=== PATIENT | male | born 1945 | race Caucasian/White ===

== ENCOUNTER 2017-02-10 06:24 | Observation (INO) | payer MEDICARE ==
[~2017-02-10] VITALS: Ht 177.8 cm; Wt 60.8 kg
[~2017-02-10 06:24] MED LIST: CARV12.52 PO; CLON0.1T PO; DIAZ5TAB PO; FURO1TAB62 PO; GLIM1 PO; LISI-515 PO; METF500T PO; MOBI7.5T PO; MULT-65 PO; OMEGCAP PO; POTA-163 PO; SERT-132 PO; SIMV40TA PO; TAMS5CAP PO; TERA5CAP3 PO
[2017-02-10] MEDS ORDERED: CHLORHEXIDINE GLUCONATE 2 % 1 PACK (2 CLOTHS) TOPICAL PRN (06:45)
[2017-02-10] MEDS ORDERED: INSULIN HUMAN REGULAR 1,000 UNITS/10 ML VIAL SQ PRN (06:45)
[2017-02-10] MEDS ORDERED: METOPROLOL TARTRATE 25 MG TAB PO PRN (06:45)
[2017-02-10] MEDS ORDERED: SODIUM CHLORID 0.9% 500 ML IV PRN (06:45)
[2017-02-10] MEDS ORDERED: POVIDONE IODINE 5% (ANTISEPSIS KIT) 4 APPLICATIONS EACH NARE PRN (06:45)
[2017-02-10] MEDS ORDERED: LACTATED RINGER'S 1000 ML IV PRN (06:45)
[2017-02-10] MEDS ORDERED: VANCOMYCIN HCL 1000 MG ON-CALL/NS 250 ML IV SCH ×2 (07:00)
[2017-02-10] MEDS ORDERED: SODIUM CHLOR 0.9% 1000 ML INJ 1,000 ML IV SCH (07:00)
[2017-02-10] MEDS ORDERED: BUPIVACAINE HCL PF 0.5% 30 ML VIAL ONE (07:10)
[2017-02-10] MEDS ORDERED: methylPREDNISolone ACETATE 40 MG/ML VIAL ONE (07:11)
[2017-02-10] MEDS ORDERED: GELFOAM SIZE 100 ONE (07:11)
[2017-02-10] MEDS ORDERED: ceFAZolin 2 GM PREMIX 50 ML ONE (07:11)
[2017-02-10] MEDS ORDERED: THROMBIN (TOPICAL) 5,000 UNIT VIAL ONE (07:11)
[2017-02-10] MEDS ORDERED: GENTAMICIN SULFATE 80 MG/2 ML VIAL ONE (07:12)
[2017-02-10 07:19] VITALS: BP 136/82; PULSE 82; RESP 18; TEMP 97; O2SAT 98
[2017-02-10] MEDS ORDERED: ARTIFICIAL TEARS OPTH OINT 3.5 APPLIC/3.5 GM TUBO ONE (08:05)
[2017-02-10] MEDS ORDERED: MIDAZOLAM HCL 2 MG/2 ML VIAL ONE (08:05)
[2017-02-10] MEDS ORDERED: ACETAMINOPHEN 1000 MG/100 ML VIAL IV ONE (08:05)
[2017-02-10] MEDS ORDERED: FAMOTIDINE 20 MG/2 ML VIAL ONE (08:06)
[2017-02-10] MEDS ORDERED: fentaNYL CITRATE 250 MCG/5 ML AMP ONE (08:06)
[2017-02-10] MEDS: NS + KCL 20 MEQ INJ 1,000 ML IV SCH ×3 (11:11→23:58)
[2017-02-10] MEDS ORDERED: MORPHINE SULFATE 4 MG/ML INJ IV PUSH PRN ×2 (11:15)
[2017-02-10] MEDS: DOCUSATE SODIUM 100 MG CAP PO SCH ×2 (11:15→21:48)
[2017-02-10] MEDS ORDERED: SODIUM CHLORIDE 0.9% FLUSH 5 ML FLUSH IVF PRN (11:15)
[2017-02-10] MEDS ORDERED: ACETAMINOPHEN 325 MG TAB PO PRN (11:15)
--- NOTE | 2017-02-10 11:27 | PD.OP ---
Operative Report Date of Surgery: Feb 10, 2017 Preoperative Diagnosis: Lumbar spinal stenosis Postoperative Diagnosis: Lumbar spinal stenosis Procedure: L3-L4, L4-L5 left decompressive laminectomy, mesial facetectomy, foraminotomy with microsurgical resection of the disc Anesthesia: Surgeon: Michael Dyer Customer Account Technician(s): Brett willett Operation and Findings: INDICATIONS FOR THE SURGICAL PROCEDURE Mr Landers is a 72 year-old male who presented with intractable mechanical back pain and clinical evidence of left L4 and L5 lower extremity radiculopathy. He was found to have significant lumbar spinal stenosis with significant mass effect on the neural structures which correlated with the clinical symptoms. The patient has failed maximum nonsurgical management including multiple modalities of conservative treatment as well as pain management interventions by an interventional pain specialist. A surgical decompression was indicated as a last resort. The [id number] details of the procedure, indications, alternatives, risks and potential complications were fully discussed with the patient. The patient fully understood. All the questions were answered. No guarantees were given. The patient voiced requesting the procedure and provided informed consents. The patient was offered the alternative of delaying the procedure and continuing with nonsurgical management. DETAILS OF THE SURGICAL PROCEDURE After the induction of general anesthesia, endotracheal intubation was performed. A Castanon catheter, bilateral JULIETTE hose and sequential compression devices were placed and kept throughout the procedure. The patient was positioned prone on a Cody table over a Hunter frame. All pressure points were carefully padded with eggcrate mattress. The eyes were tapped shut after ointment was applied by the anesthesiologist to prevent corneal abrasion. A Shaun hugger was placed over the exposed lower body to maintain control of the core body temperature. The lower lumbar region was prepped and draped in the usual sterile fashion. A spinal needle was placed for localization and an x- ray performed with a C-arm. A skin incision was made in the midline over the spinous processes L3, 4 and L5 with a #10 blade. Small subcutaneous bleeders were controlled with a bipolar and the dissection was carried out through the lumbar fascia exposing the spinous processes. A subperiostial dissection was performed with a Villafuerte elevator and a Bovie over the left L3-4 and L4-5 spinous process lamina and facets. A microdiscectomy self-retaining retractor was placed on the incision and an x-ray was obtained with an instrument placed underneath the lamina of L4. At this point in the procedure the operating microscope was draped in the usual sterile fashion and brought to the field. The rest of the surgical procedure was performed using microsurgical dissection technique with exception of the closure. Once the level was confirmed, a decompressive laminectomy was performed at L3-4 and L4-5 using the TPS drill with an 4mm drill bit. A left medial facetectomy was performed and the superior free border of the ligamentum flavum was dissected with a ligament dissector and removed with a thin footplate 2 mm Kerrison. The medial facetectomy was done and the L4 and L5 nerve root were identified and followed towards its exit in the foramen. Epidural veins located laterally to the dural sac were coagulated with a bipolar and incised with microscissors. Gentle medial retraction of the dural sac allowed inspection of the disc space. The patient had severe facet arthropathy with hypertrhopy of the joint facets and ligamentum flavum resulting in mass effect over the dural sac and nerve roots. In addition, there was a broad-based disc protusion, contributing to the stenosis. The annulus fibrosus of the disc at L3-4 and L4-5 were coagulated with the bipolar and incised with an 11 blade. The discs were carefully dissected from the surrounding tissue and removed with pituitary forceps. Then, a microdiscectomy was carried out in the standard fashion using straight and up- biting pituitary forceps. A good decompression of the dural sac and nerve root was achieved. The exit of the nerve root was inspected for residual disc fragments and hemostasis was secured with the bipolar. The incision was irrigated with a large amount of saline solution. A Valsalva maneuver failed to show any cerebrospinal fluid leak or bleeding. The decompression was assessed again and found to be satisfactory. The incision was then closed in layers. The fascia was closed with 0 Vicryl sutures in an interrupted fashion. The superficial fascia was closed with 0 Vicryl sutures. The fascia was infiltrated with 0.5% Marcaine with epinephrine 1:100,000 dilution. The subcutaneous tissue was irrigated then closed with 0 Vicryl and 3 -0 Vicryl. The skin was closed with 4-0 running subcuticular Vicryl. A sterile dressing was applied. At the end of the procedure, the sponge, needle and instrument counts were all correct. Estimated blood loss was less than 90 cc. No blood transfusion was given. No intraoperative complications occurred. The patient received prophylactic antibiotics. The patient was then extubated and transferred to the recovery room in stable condition. Michael Dyer MD Feb 10, 2017 11:27
[2017-02-10] MEDS ORDERED: DO NOT ADM ANY ANTICOAGULANT DRUGS PRN (11:30)
[2017-02-10] MEDS ORDERED: ePHEDrine/NS 25 MG/5 ML SYR IV ONE (12:00)
[2017-02-10] MEDS ORDERED: PHENYLEPH/NS 1000 MCG/10 ML SYR IV ONE (12:00)
[2017-02-10] MEDS ORDERED: NEOSTIGMINE 3 MG/3 ML SYR IV ONE (12:00)
[2017-02-10] MEDS ORDERED: PROPOFOL 200 MG/20 ML AMP IV ONE (12:00)
[2017-02-10] MEDS ORDERED: LACTATED RINGER'S 1000 ML INJ 1,000 ML IV ONE (12:00)
[2017-02-10] MEDS ORDERED: ONDANSETRON HCL 4 MG/2 ML VIAL IV PUSH ONE (12:00)
[2017-02-10] MEDS: metFORMIN HCL 500 MG TAB PO SCH ×2 (12:04→16:25)
--- NOTE | 2017-02-10 12:15 | RADRPT ---
EXAM DATE/TIME: 02/10/2017 08:57 [facility] COMPARISON: No previous studies available for comparison. INDICATIONS : Laminectomy and microdiskectomy L3-4, L4-5. Herniated disk. MEDICAL HISTORY : None. SURGICAL HISTORY : None. ENCOUNTER: Initial ACUITY: 1 day PAIN SCORE: 0/10 LOCATION: Left lumbar spine FINDINGS: Single spot intraoperative lateral fluoroscopic view of the lower lumbar spine demonstrates localizat ion hardware projecting posterior to the L4 and L3 vertebral bodies. CONCLUSION: Localization as above. Víctor Ruiz MD on February 10, 2017 at 12:11 Board Certified Radiologist. This report was verified electronically.
[2017-02-10 12:35] VITALS: BP 136/75; PULSE 71; RESP 18; TEMP 96.2; O2SAT 99
[2017-02-10] MEDS: ACETAMINOPHEN/HYDROcodone 325 MG/10 MG TAB PO PRN ×2 (12:40→16:25)
[2017-02-10 15:39] VITALS: O2SAT 99
[2017-02-10 16:05] VITALS: BP 160/80; PULSE 77; RESP 18; TEMP 96.2; O2SAT 98
[2017-02-10] MEDS: ceFAZolin 2 GM PREMIX 50 ML IV SCH (16:25)
[2017-02-10 20:00] VITALS: BP 148/78; PULSE 82; RESP 20; TEMP 98.6; O2SAT 95
[2017-02-10] MEDS ORDERED: TERAZOSIN HCL 5 MG CAP PO SCH (21:00)
[2017-02-10] MEDS ORDERED: DIAZEPAM 5 MG TAB PO SCH (21:00)
[2017-02-10] MEDS: cloNIDine HCL 0.1 MG TAB PO SCH (21:48)
[2017-02-10] MEDS: LISINOPRIL 20 MG TAB PO SCH (21:48)
[2017-02-11 00:17] VITALS: BP 183/80; PULSE 69; RESP 16; TEMP 98; O2SAT 99
[2017-02-11] MEDS: ACETAMINOPHEN/HYDROcodone 325 MG/10 MG TAB PO PRN ×3 (00:37→14:26)
[2017-02-11] MEDS: ceFAZolin 2 GM PREMIX 50 ML IV SCH ×2 (00:37→09:02)
[2017-02-11 04:00] VITALS: BP 168/85; PULSE 90; RESP 16; TEMP 97.7; O2SAT 96
[2017-02-11 08:00] VITALS: BP 150/80; PULSE 58; RESP 18; TEMP 96.5; O2SAT 96
[2017-02-11] MEDS ORDERED: SODIUM CHLORIDE 0.9% FLUSH 5 ML FLUSH IVF SCH (09:00)
[2017-02-11] MEDS ORDERED: MULTIVITAMIN TAB PO SCH (09:00)
[2017-02-11] MEDS ORDERED: CARVEDILOL 12.5 MG TAB PO SCH (09:00)
[2017-02-11] MEDS ORDERED: NON-FORMULARY DRUG (Fish Oil-Cholecalciferol (Omega-3 Fish Oil/Vitamin) 1 CAP) PO SCH (09:00)
[2017-02-11] MEDS ORDERED: PANTOPRAZOLE SOD 40 MG DELAYED RELEASE TAB PO SCH (09:00)
[2017-02-11] MEDS: GLIMEPIRIDE 1 MG TAB PO SCH ×2 (09:00→09:02)
[2017-02-11] MEDS: cloNIDine HCL 0.1 MG TAB PO SCH (09:02)
[2017-02-11] MEDS: DOCUSATE SODIUM 100 MG CAP PO SCH (09:03)
[2017-02-11] MEDS: LISINOPRIL 20 MG TAB PO SCH (09:03)
[2017-02-11] MEDS: metFORMIN HCL 500 MG TAB PO SCH ×3 (09:03→14:26)
[2017-02-11] MEDS ORDERED: HYDR-3583 PO (09:07)
[2017-02-11 09:11] VITALS: O2SAT 95
--- NOTE | 2017-02-11 09:38 | HHI.DCPOC ---
Discharge Care Plan Diagnosis: (1) S/P lumbar laminectomy Goals to Promote Your Health * To prevent worsening of your condition and complications * To maintain your health at the optimal level Directions to Meet Your Goals Take your medications as prescribed Follow your dietary instruction Follow activity as directed Keep your appointments as scheduled Take your immunizations and boosters as scheduled If your symptoms worsen call your PCP, if no PCP go to Urgent Care Center or Emergency Room Smoking is Dangerous to Your Health. Avoid second hand smoke Call the 24-hour hour crisis hotline for domestic abuse at Pratima Villareal Feb 11, 2017 09:38
--- NOTE | 2017-02-11 09:41 | HHI.DS ---
Discharge Summary Admission Date Feb 10, 2017 at 11:16 Discharge Date: Feb 11, 2017 Admitting Diagnosis s/p lumbar laminectomy (1) S/P lumbar laminectomy ICD Code: Z98.890 Brief History Mr Landers is a 72 year-old male who presented with intractable mechanical back pain and clinical evidence of left L4 and L5 lower extremity radiculopathy. He was found to have significant lumbar spinal stenosis with significant mass effect on the neural structures which correlated with the clinical symptoms. The patient has failed maximum nonsurgical management including multiple modalities of conservative treatment as well as pain management interventions by an interventional pain specialist. A surgical decompression was indicated as a last resort. Imaging Last Impressions Lumbar Spine X-Ray 02/10/17 0000 Signed Impressions: Service Date/Time: Friday, February 10, 2017 08:57 - CONCLUSION: Localization as above. Víctor Ruiz MD PE at Discharge Mr. Landers is alert, in no apparent distress. Speech is fluent. Incision is clean and dry, with dermabond prineo dressing in place. Cranial nerve examination: pupils equal, round and reactive to light. Extra- ocular movements are intact. Facial motor are normal and symmetrical. Muscle strength is 5/5 to both deltoid, biceps, triceps, and hospital unit coordinator in the upper extremities. 5/5 to both iliopsoas, quadriceps, hamstrings, plantarflexion, dorsiflexion, and EHL in the lower extremities. Sensory examination is intact to light touch in both the upper and lower extremities. Respiratory: clear Heart: NSR Hospital Course Mr. Landers is a 72 year old male who underwent a L3-L4, L4-L5 left decompressive laminectomy, mesial facetectomy, foraminotomy with microsurgical resection of the disc on Feb 10, 2017. His surgery went well without complications. He will be discharged home in stable conditions. Pt Condition on Discharge: Stable Discharge Disposition: Discharge Home Discharge Instructions DIET: Follow Instructions for: Heart Healthy Diet ACTIVITIES You can perform: Weight Bearing As Brandin ADDITIONAL Activity Instructio: Avoid strenuous activities, heavy lifting, overhead activities, repetitive bending, twisting, pushing, pulling or any activities which might result in stress over the spine. Avoid situtation that will put at risk for falls. Use assistive device as needed for walking. Wear lumbar brace when out of bed. New Medications: Hydrocodone-Acetaminophen (Hydrocodone-Acetaminophen) 10-325 mg Tab 1 TAB PO Q8HR Pain #90 Ref 0 TAB Continued Medications: Carvedilol (Carvedilol) 12.5 Mg Tab 12.5 MG PO DAILY #60 Ref 0 TAB Clonidine (Clonidine) 0.1 Mg Tab 0.1 MG PO BID Blood Pressure Management #60 Ref 0 TAB Diazepam (Diazepam) 5 Mg Tab 5 MG PO HS Ref 0 TAB Fish Oil-Cholecalciferol ([place]-3 Fish Oil/Vitamin) 1,000-1,000 Mg Cap 1 CAP PO DAILY Nutritional Supplement Ref 0 CAP Glimepiride (Amaryl) 1 Mg Tab 1 MG PO DAILY Take with breakfast or first main meal Blood Sugar Management #30 Ref 0 TAB Lisinopril (Lisinopril) 20 Mg Tab 20 MG PO BID #30 Ref 0 TAB Meloxicam (Mobic) 7.5 Mg Tab Unknown Dose PO DAILY Pain Ref 0 TAB Metformin (Metformin) 500 Mg Tab 500 MG PO TIDPC With meals Blood Sugar Management #90 Ref 0 TAB Multiple Vitamin (Multi-Vitamin Daily) 1 Tab Tab 1 TAB PO DAILY Nutritional Supplement Ref 0 TAB Terazosin (Terazosin) 5 Mg Cap 5 MG PO HS #30 Ref 0 CAP Pratima Villareal Feb 11, 2017 09:41
[2017-02-11 12:00] VITALS: BP 151/82; PULSE 52; RESP 18; TEMP 95.9; O2SAT 98
== END 2017-02-11 15:05 | disposition home or self-care (01) ==
LOC: HSDC 06:24 → HSDI 11:16 → N06B 12:37 → N06A 20:23
PROVIDERS: ADMIT Neurological Surgery; ATTEND Neurological Surgery
DX: M48.06 Spinal stenosis, lumbar region (principal); E11.9 Type 2 diabetes mellitus without complications; J44.9 Chronic obstructive pulmonary disease, unspecified; G47.30 Sleep apnea, unspecified
CPT/HCPCS: 00630; 63047; 63048; 72020; 76000; 82948; 94150; 97110; 97116; 97163; G0378; G8987; G8988; J0131; J0690; J1030; J1580; J2250; J2270; J2370; J2405; J2710; J3010; J3370; J3480; J7050; J7120; L0627

== ENCOUNTER 2017-02-25 13:40 | Inpatient (IN) | payer MEDICARE ==
[~2017-02-25 13:40] MED LIST changes: -FURO1TAB62 PO; +HYDR-3583 PO; -POTA-163 PO; -SERT-132 PO; -SIMV40TA PO; -TAMS5CAP PO
[2017-02-25 13:41] VITALS: BP 127/63; PULSE 70; RESP 20; O2SAT 91
[2017-02-25 16:51] VITALS: BP 195/90; PULSE 98; RESP 18; O2SAT 98
--- NOTE | 2017-02-25 17:36 | PD ---
HPI Chief Complaint: Fall Time Seen by Provider: 17:35 Travel History International Travel<30 days: No Contact w/Intl Traveler<30days: No Traveled to known affect area: No History of Present Illness HPI 72-year-old male with history of hypertension, COPD, hyperlipidemia presents to the emergency department for evaluation of low back pain status post slip and fall onto his back about 1 week ago. The patient had a laminectomy at L3 to L4 and L4 to L5 performed by Dr. Dyer 2 weeks ago. He states that he was doing well after the surgery and 2 days after being home he was in his bathroom and opened the cabinet and when he turned around to walk back he lost his balance and slipped and fell onto his lower back. Denies head trauma or loss of consciousness. States that he is having pain in his mid lower back and radiating to left buttock. Denies any bowel or bladder dysfunction, fever, chills, nausea, vomiting, numbness or tingling. No other complaints. PFSH Past Medical History Arthritis: Yes Asthma: Yes Autoimmune Disease: No Blood Disorders: No Anxiety: No Depression: No Heart Rhythm Problems: No Cancer: No Cardiovascular Problems: Yes High Cholesterol: Yes Chemotherapy: No Chest Pain: No Congestive Heart Failure: No COPD: Yes Cerebrovascular Accident: Yes Diabetes: Yes Endocrine: Yes GERD: No Genitourinary: Yes (BPH) Hepatitis: No Hiatal Hernia: Yes Hypertension: Yes Immune Disorder: No Kidney Stones: Yes (LAP REMOVAL) Musculoskeletal: Yes (ARTHIRITIS, MULTIPLE ORTHOPEDIC FRACTURES) Neurologic: Yes (CVA 05/03/13) Psychiatric: No Reproductive: No Respiratory: Yes Migraines: Yes Radiation Therapy: No Renal Failure: No Seizures: No Sickle Cell Disease: No Sleep Apnea: No (NO CPAP/BIPAP) Thyroid Disease: No Ulcer: No Past Surgical History Abdominal Surgery: Yes (BILATERAL HERNIA REPAIRS) AICD: No Arteriovenous Shunt: No Body Medical Devices: 11 TITANIUM FELIPE, SURGICAL NEED LEFT IN LEFT ABDOMEN CAVITY PER PATIENT Cardiac Surgery: No Ear Surgery: Yes Endocrine Surgery: Yes Eye Surgery: No Genitourinary Surgery: Yes (KIDNEY STONE REMOVAL/LAP) Gynecologic Surgery: No Insulin Pump: No Joint Replacement: No Oral Surgery: Yes (TONSILECTOMY) Pacemaker: No Thoracic Surgery: No Tonsillectomy: Yes Social History Alcohol Use: Yes Tobacco Use: Yes Substance Use: No Allergies-Medications (Allergen,Severity, Reaction): Coded Allergies: No Known Allergies (Verified , PER DR MCINTOSH H/P, 02/10/17) Reported Meds & Prescriptions Reported Meds & Active Scripts Active Hydrocodone-Acetaminophen 10-325 mg Tab 1 Tab PO Q8HR Reported Terazosin (Terazosin HCl) 5 Mg Cap 5 Mg PO HS [place]-3 Fish Oil/Vitamin (Fish Oil-Cholecalciferol) 1,000-1,000 Mg Cap 1,000 Mg PO DAILY Multi-Vitamin Daily (Multiple Vitamin) 1 Tab Tab 1 Tab PO DAILY Metformin (Metformin HCl) 500 Mg Tab 500 Mg PO TIDPC With meals Mobic (Meloxicam) Unknown Strength Tab 1 Tab PO DAILY Lisinopril 20 Mg Tab 20 Mg PO BID Amaryl (Glimepiride) 1 Mg Tab 1 Mg PO DAILY Take with breakfast or first main meal Diazepam 5 Mg Tab 5 Mg PO HS Clonidine (Clonidine HCl) 0.1 Mg Tab 0.1 Mg PO BID Carvedilol 12.5 Mg Tab 12.5 Mg PO DAILY Review of Systems Except as stated in HPI: all other systems reviewed are Neg Physical Exam Narrative GENERAL: Well-nourished and well-developed elderly male patient in no acute distress. SKIN: Warm and dry. HEAD: Normocephalic and atraumatic. EYES: No injection, drainage, or hyphema noted. PERRLA. EOMI. ENT: No nasal drainage noted. Oropharynx is clear. NECK: Supple and the trachea is midline. CARDIOVASCULAR: Regular rate and rhythm. RESPIRATORY: Breath sounds are equal bilaterally with no accessory muscle use, wheezing, rhonchi, or crackles. GASTROINTESTINAL: Abdomen is soft, non-tender, and nondistended. MUSCULOSKELETAL: No obvious deformities, swelling, cyanosis, or ecchymosis is present throughout the upper and lower extremities. Patient has full range of motion without any signs of neurovascular compromise. Strength 5/5 upper and lower extremities and equal bilaterally. BACK: Swelling and tenderness to palpation over lumbar spine with surgical scar noted. There is also tenderness to palpation of the left buttock. NEUROLOGICAL: Awake, alert, and oriented. Normal speech and gait. Cranial nerves are grossly intact. Data Data Last Documented VS Vital Signs Date Time Temp Pulse Resp B/P Pulse Ox O2 Delivery O2 Flow Rate FiO2 02/25/17 19:32 70 16 193/93 96 Room Air Orders Spine, Thoracic-Ap/Lat/Sw(3vw) (02/25/17 17:21) Spine, Lumbar Comp W/Obliq (02/25/17 17:21) Pelvis, Ap Only (Routine) (02/25/17 17:21) Complete Blood Count With Diff (02/25/17 17:21) Comprehensive Metabolic Panel (02/25/17 17:21) Prothrombin Time / Inr (Pt) (02/25/17 17:21) Act Partial Throm Time (Ptt) (02/25/17 17:21) Iv Access Insert/Monitor (02/25/17 17:21) Ecg Monitoring (02/25/17 17:21) Oximetry (02/25/17 17:21) Sodium Chloride 0.9% Flush (Ns Flush) (02/25/17 17:30) Mri L Spine W&W/O Contrast (02/25/17 ) Acetamin-Hydrocod 325-5 Mg ([place] 5-325 (02/25/17 17:45) Lisinopril (Prinivil) (02/25/17 18:45) Gadodiamide Pf Inj (Omniscan Pf Inj) (02/25/17 20:15) Labs Laboratory Tests Test 02/25/17 18:00 White Blood Count 11.9 TH/MM3 Red Blood Count 4.05 MIL/MM3 Hemoglobin 12.7 GM/DL Hematocrit 39.1 % Mean Corpuscular Volume 96.4 FL Mean Corpuscular Hemoglobin 31.4 PG Mean Corpuscular Hemoglobin 32.6 % Concent Red Cell Distribution Width 15.0 % Platelet Count 400 TH/MM3 Mean Platelet Volume 7.4 FL Neutrophils (%) (Auto) 81.1 % Lymphocytes (%) (Auto) 9.7 % Monocytes (%) (Auto) 8.8 % Eosinophils (%) (Auto) 0.1 % Basophils (%) (Auto) 0.3 % Neutrophils # (Auto) 9.7 TH/MM3 Lymphocytes # (Auto) 1.2 TH/MM3 Monocytes # (Auto) 1.0 TH/MM3 Eosinophils # (Auto) 0.0 TH/MM3 Basophils # (Auto) 0.0 TH/MM3 CBC Comment DIFF FINAL Differential Comment Prothrombin Time 12.7 SEC Prothromb Time International 1.1 RATIO Ratio Activated Partial 34.1 SEC Thromboplast Time Sodium Level 130 MEQ/L Potassium Level 4.3 MEQ/L Chloride Level 94 MEQ/L Carbon Dioxide Level 26.4 MEQ/L Anion Gap 10 MEQ/L Blood Urea Nitrogen 22 MG/DL Creatinine 1.00 MG/DL Estimat Glomerular Filtration 73 ML/MIN Rate Random Glucose 149 MG/DL Calcium Level 9.3 MG/DL Total Bilirubin 0.5 MG/DL Aspartate Amino Transf 25 U/L (AST/SGOT) Alanine Aminotransferase 16 U/L (ALT/SGPT) Alkaline Phosphatase 100 U/L Total Protein 7.2 GM/DL Albumin 2.9 GM/DL MDM Medical Decision Making Medical Screen Exam Complete: Yes Emergency Medical Condition: Yes Differential Diagnosis Fracture versus postsurgical pain versus contusion Narrative Course 72-year-old male presents to the emergency department for evaluation of lower back pain status post trip and fall after having lower back surgery. Patient is afebrile, vital signs are stable. No head trauma or loss of consciousness. He fell onto his lower back where he had recent surgery. No focal neurologic deficits. X-ray imaging has been ordered and is pending. MRI imaging has been ordered and is pending. CBC shows elevated white blood count of 11.9, otherwise unremarkable. CMP shows mild hyponatremia with sodium of 130 and BUN is elevated at 22. Likely mild dehydration. Coags are unremarkable. X-ray lumbar spine is negative for any acute abnormalities. X-ray of the thoracic spine is negative for any acute abnormalities. X-ray of the pelvis is negative for any acute abnormalities. MRI is pending at my end of shift. Ultimately the patient should be kept in observation regardless of what the MRI shows as he is debilitated and unable to care for himself at home. After discussion with the patient and his brother he has not been able to perform activities of daily living on his own and is unsafe taking care of himself alone at home. He needs rehabilitation and probably placement into a rehabilitation facility. Patient signed out to my attending physician Dr. Hobbs who will assume care of the patient and disposition. Physician Communication Physician Communication I spoke with Dr. Gray who agrees to accept the patient under Dr. Norwood's service. Diagnosis Primary Impression: Back pain Qualified Code: M54.5 - Bilateral low back pain without sciatica, unspecified chronicity Additional Impressions: S/P lumbar laminectomy Inability to perform activities of daily living Admitting Information Admitting Physician Requests: Admit Nery Meyer Feb 25, 2017 17:35
[2017-02-25] MEDS ORDERED: ACETAMINOPHEN/HYDROcodone 325 MG/5 MG TAB PO ONE (17:45)
--- NOTE | 2017-02-25 18:00 | RADRPT ---
EXAM DATE/TIME: 02/25/2017 17:40 [facility] COMPARISON: No previous studies available for comparison. INDICATIONS : Pain post fall. MEDICAL HISTORY : None. SURGICAL HISTORY : Lumbar laminectomy. ENCOUNTER: Initial ACUITY: 4 - 6 days PAIN SCORE: 6/10 LOCATION: Bilateral pelvis. FINDINGS: A single frontal view of the pelvis demonstrates no evidence of fracture. The bony pelvic ring is in tact. Bony mineralization is normal. The soft tissues are intact. Moderate vascular calcifications are evident. Seminal vesicle calcifications are noted. CONCLUSION: Negative for fracture or dislocation. Follow up in 7-10 days is suggested if symptoms persist. Kenneth Hale MD FACR on February 25, 2017 at 17:57 Board Certified Radiologist. This report was verified electronically.
--- NOTE | 2017-02-25 18:01 | RADRPT ---
EXAM DATE/TIME: 02/25/2017 17:41 [facility] COMPARISON: No previous studies available for comparison. INDICATIONS : Upper back pain post fall. MEDICAL HISTORY : SURGICAL HISTORY : lumbar laminectomy. ENCOUNTER: Initial ACUITY: 4 - 6 days PAIN SCORE: 8/10 LOCATION: thoracic spine. FINDINGS: There is normal alignment of the thoracic vertebral bodies. Vertebral body height is maintained. No evidence of fracture or subluxation. Pedicles are intact at all levels. The paravertebral reflecti ons are not thickened. CONCLUSION: Negative for fracture. MRI would be more sensitive for acute compression. Kenneth Hale MD FACR on February 25, 2017 at 17:59 Board Certified Radiologist. This report was verified electronically.
--- NOTE | 2017-02-25 18:16 | RADRPT ---
EXAM DATE/TIME: 02/25/2017 17:41 [facility] COMPARISON: No previous studies available for comparison. INDICATIONS : Lumbar pain post fall. MEDICAL HISTORY : None. SURGICAL HISTORY : Lumbar laminectomy. ENCOUNTER: Initial ACUITY: 4 - 6 days PAIN SCORE: 9/10 LOCATION: lumbar. FINDINGS: Degenerative changes at L1-2 and L2-3. There is loss of disc space height at L4-5. There is good pr eservation of vertebral body heights. Mild degenerative changes are present facets. Moderate gaseou s distention is noted. CONCLUSION: Degenerative changes without acute compression. Kenneth Hale MD FACR on February 25, 2017 at 18:00 Board Certified Radiologist. This report was verified electronically.
[2017-02-25 18:18] LABS: AUTOMATED NEUTROPHIL # 9.7 TH/MM3 (1.8-7.7); BASOPHIL % 0.3 % (0.0-2.0); EOSINOPHIL % 0.1 % (0.0-4.0); HEMATOCRIT 39.1 % (39.0-51.0); HEMO FLAGS DIFF FINAL; LYMPH % 9.7 % (9.0-44.0); LYMPHOCYTE # 1.2 TH/MM3 (1.0-4.8); MEAN CELL VOLUME 96.4 FL (80.0-100.0); MEAN CORPUSCULAR HEMOGLOBIN 31.4 PG (27.0-34.0); MEAN CORPUSCULAR HGB CONC 32.6 % (32.0-36.0); MONO % 8.8 % (0.0-8.0); NEUT % 81.1 % (16.0-70.0); PLATELET COUNT 400 TH/MM3 (150-450); RED BLOOD COUNT 4.05 MIL/MM3 (4.50-5.90); WHITE BLOOD COUNT 11.9 TH/MM3 (4.0-11.0)
[2017-02-25] MEDS: SODIUM CHLORIDE 0.9% FLUSH 10 ML FLUSH IV FLUSH PRN (18:29)
[2017-02-25 18:33] VITALS: BP 215/101; PULSE 75; RESP 20; O2SAT 96
[2017-02-25 18:34] LABS: APTT (PATIENT) 34.1 SEC (24.3-30.1); INTERNATIONAL NORMALIZED RATIO 1.1 RATIO; PROTHROMBIN TIME - PATIENT 12.7 SEC (9.8-11.6)
[2017-02-25 18:45] LABS: ANION GAP 10 MEQ/L (5-15); AST (GOT) 25 U/L (15-37); BICARBONATE 26.4 MEQ/L (21.0-32.0); BLOOD UREA NITROGEN 22 MG/DL (7-18); CHLORIDE 94 MEQ/L (98-107); GLOMERULAR FILTRATION RATE 73 ML/MIN (>89); POTASSIUM 4.3 MEQ/L (3.5-5.1); SODIUM (NA) 130 MEQ/L (136-145)
[2017-02-25] MEDS ORDERED: LISINOPRIL 20 MG TAB PO ONE (18:45)
[2017-02-25 18:46] LABS: ALT (GPT) 16 U/L (12-78)
[2017-02-25 18:48] LABS: ALKALINE PHOSPHATASE 100 U/L (45-117); TOTAL BILIRUBIN ADULT 0.5 MG/DL (0.2-1.0)
[2017-02-25 19:32] VITALS: BP 193/93; PULSE 70; RESP 16; O2SAT 96
[2017-02-25] MEDS ORDERED: GADODIAMIDE PF 287 MG/ML 20 ML VIAL (for RAD MRI) IV ONE (20:15)
--- NOTE | 2017-02-25 21:03 | RADRPT ---
EXAM DATE/TIME: 02/25/2017 19:51 [facility] COMPARISON: No previous studies available for comparison. INDICATIONS : Trauma. CONTRAST: 14 cc Omniscan (gadodiamide) IV MEDICAL HISTORY : Hypertension. Diabetes mellitus type 2. SURGICAL HISTORY : Discectomy, lumbar. Inguinal hernia repair. Tonsillectomy. ENCOUNTER: Initial ACUITY: 2 day PAIN SCORE: 5/10 LOCATION: Paraspinal TECHNIQUE: Multiplanar multisequence MRI of the lumbar spine was performed with and without contrast. FINDINGS: The most caudal appearing lumbar vertebra is numbered as L5. T12-L1: The thecal sac has a normal diameter. No evidence of disc bulge or protrusion. The neural foramina are patent bilaterally. L1-L2: Moderate interspace ridging is present with mild to moderate degree of spinal stenosis. L2-L3: There is radiographically significant spinal stenosis with near-complete obliteration of the thecal s ac. L3-L4: Post surgical changes are evident with minimal fluid in the operative site. There is mild residual s cruz stenosis. L4-L5: Postsurgical changes are evident enhancement in the epidural space without focal disc herniation. Th ere is contrast enhancement around the thecal sac. L5-S1: Mild degenerative changes. There is no significant spinal stenosis. CONCLUSION: Postsurgical changes evident. With enhancement as described above laboratory process cannot be entir sonia excluded. If there is strong clinical concern for such fluid easily aspirated under CT or ultras ound. There is no evidence for an acute compression fracture. Kenneth Hale MD FACR on February 25, 2017 at 20:56 Board Certified Radiologist. This report was verified electronically.
[2017-02-25] MEDS ORDERED: VANCOMYCIN INJ 1,000 MG in SODIUM CHLOR 0.9% 250 ML INJ 250 ML IV ONE (21:15)
--- NOTE | 2017-02-25 21:48 | HHI.HP ---
HPI Service [facility] Hospitalists Primary Care Physician Vinicio Cardona Admission Diagnosis Back Pain s/p Lumbar Laminectomy, Fall, Inability to Care for Self Chief Complaint: back pain, inability to ambulate, self care issues Travel History International Travel<30 Days: No Contact w/Intl Traveler <30 Da: No Traveled to Known Affected Are: No History of Present Illness 72-year-old male with history of hypertension, COPD, hyperlipidemia presents to the emergency department for evaluation of low back pain status post slip and fall onto his back about 3 days ago. The patient had a laminectomy at L3 to L4 and L4 to L5 performed by Dr. Dyer on February 10 of this year. He states that he was doing well after the surgery and a few days after being home he was in his bathroom and opened the cabinet and when he turned around to walk back he lost his balance and slipped and fell onto his lower back. Denies head trauma or loss of consciousness. States that he is having pain in his mid lower back and radiating to left buttock. Pain is worse with certain twisting motions of lower spine. Denies any bowel or bladder dysfunction, fever, chills, nausea, vomiting, numbness or tingling. No other complaints. He was apparently brought in by his brother and there is some concern that he will not be able to care for himself at home given that he's had this fall in significant pain. Reportedly he was found with feces and urine on his body. Review of Systems Constitutional: COMPLAINS OF: Fatigue, DENIES: Diaphoretic episodes, Fever, Weight gain, Weight loss, Chills, Dizziness, Change in appetite, Night Sweats Endocrine: DENIES: Heat/cold intolerance, Polydipsia, Polyuria, Polyphagia Eyes: DENIES: Blurred vision, Diplopia, Eye inflammation, Eye pain, Vision loss , Photosensitivity, Double Vision Ears, nose, mouth, throat: DENIES: Tinnitus, Hearing loss, Vertigo, Nasal discharge, Oral lesions, Throat pain, Hoarseness, Ear Pain, Running Nose, Epistaxis, Sinus Pain, Toothache, Odynophagia Respiratory: DENIES: Apneas, Cough, Snoring, Wheezing, Hemoptysis, Sputum production, Shortness of breath Cardiovascular: DENIES: Chest pain, Palpitations, Syncope, Dyspnea on Exertion , PND, Lower Extremity Edema, Orthopnea, Claudication Gastrointestinal: DENIES: Abdominal pain, Black stools, Bloody stools, BRB per rectum, Constipation, Diarrhea, GERD, Nausea, Reflux, Vomiting, Difficulty Swallowing, Anorexia, See HPI Musculoskeletal: COMPLAINS OF: Joint pain, Back pain Integumentary: DENIES: Abnormal pigmentation, Nail changes, Pruritus, Rash Hematologic/lymphatic: DENIES: Bruising, Lymphadenopathy Immunologic/allergic: DENIES: Eczema, Urticaria Neurologic: COMPLAINS OF: Abnormal gait, Poor Balance Psychiatric: COMPLAINS OF: Anxiety, DENIES: Confusion, Mood changes, Depression, Hallucinations, Agitation, Suicidal Ideation, Homicidal Ideation, Delusions, History of Bipolar, History of Schizophrenia Past Family Social History Past Medical History Atherosclerosis of the aorta anxiety COPD Diabetic nephropathy Diabetic neuropathy Diastolic heart failure History of right thalamic stroke in 2013 Hypertension Hyperlipidemia Lumbar degenerative disc disease with facet arthropathy Tobacco use Past Surgical History Lumbar laminectomy done February 10 of this year by Dr. Dyer Previous ureteral stent placements 2 History of lithotripsy Tonsillectomy with adenoidectomy Bilateral inguinal hernia repair Hemorrhoidectomy Reported Medications Hydrocodone-Acetaminophen 10-325 mg Tab 1 Tab PO Q8HR Terazosin (Terazosin HCl) 5 Mg Cap 5 Mg PO HS Theodore-3 Fish Oil/Vitamin (Fish Oil-Cholecalciferol) 1,000-1,000 Mg Cap 1,000 Mg PO DAILY Multi-Vitamin Daily (Multiple Vitamin) 1 Tab Tab 1 Tab PO DAILY Metformin (Metformin HCl) 500 Mg Tab 500 Mg PO TIDPC With meals Mobic (Meloxicam) Unknown Strength Tab 1 Tab PO DAILY Lisinopril 20 Mg Tab 20 Mg PO BID Amaryl (Glimepiride) 1 Mg Tab 1 Mg PO DAILY Take with breakfast or first main meal Diazepam 5 Mg Tab 5 Mg PO HS Clonidine (Clonidine HCl) 0.1 Mg Tab 0.1 Mg PO BID Carvedilol 12.5 Mg Tab 12.5 Mg PO DAILY Allergies: Coded Allergies: No Known Allergies (Verified , PER DR MCINTOSH H/P, 02/10/17) Family History Noncontributory Social History Patient reportedly lives alone but occasionally has a girlfriend that stays within No tobacco in 3 weeks but prior to that smoked half a pack to three quarters of pack per day for over 50 years Rarely drinks any alcohol Denies illicit drug use Has worked in several jobs in 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 Physical Exam Vital Signs Vital Signs Date Time Temp Pulse Resp B/P Pulse Ox O2 Delivery O2 Flow Rate FiO2 02/25/17 19:32 70 16 193/93 96 Room Air 02/25/17 18:33 75 20 215/101 96 02/25/17 17:16 98 Room Air 02/25/17 16:51 98 18 195/90 98 Room Air 02/25/17 13:41 70 20 127/63 91 Room Air Physical Exam GENERAL: This is a well-nourished, well-developed patient, who is occasionally in distress due to lower back pain depending on his positioning. When not in pain he is able to focus and give a relatively accurate history. He does appear a bit lethargic however. SKIN: Few abrasions on his lower extremities with a couple of areas of ecchymosis. Lower back noted for postsurgical scarring with a small healing wound however just adjacent to the wound is some area of induration with slight edema and mild tenderness to palpation. No significant warmth to touch. No active discharge. HEAD: Atraumatic. Normocephalic. No temporal or scalp tenderness. EYES: Pupils equal round and reactive. Extraocular motions intact. No scleral icterus. No injection or drainage. ENT: Nose without bleeding, purulent drainage or septal hematoma. Airway patent. NECK: Trachea midline. No JVD or lymphadenopathy. Supple, nontender, no meningeal signs. CARDIOVASCULAR: Regular rate and rhythm without murmurs, gallops, or rubs. RESPIRATORY: Clear to auscultation. Breath sounds equal bilaterally. No wheezes , rales, or rhonchi. GASTROINTESTINAL: Abdomen soft, non-tender, nondistended. No hepato-splenomegaly , or palpable masses. No guarding. MUSCULOSKELETAL: Extremities without clubbing, cyanosis, or edema. No joint tenderness, effusion, or edema noted. No calf tenderness. Tenderness to palpation over the mid lower back near the surgical site. NEUROLOGICAL: Awake and alert. Cranial nerves II through XII intact. Motor and sensory grossly within normal limits. Five out of 5 muscle strength in all muscle groups. Normal speech. Laboratory Laboratory Tests Test 02/25/17 18:00 White Blood Count 11.9 Red Blood Count 4.05 Hemoglobin 12.7 Hematocrit 39.1 Mean Corpuscular Volume 96.4 Mean Corpuscular Hemoglobin 31.4 Mean Corpuscular Hemoglobin 32.6 Concent Red Cell Distribution Width 15.0 Platelet Count 400 Mean Platelet Volume 7.4 Neutrophils (%) (Auto) 81.1 Lymphocytes (%) (Auto) 9.7 Monocytes (%) (Auto) 8.8 Eosinophils (%) (Auto) 0.1 Basophils (%) (Auto) 0.3 Neutrophils # (Auto) 9.7 Lymphocytes # (Auto) 1.2 Monocytes # (Auto) 1.0 Eosinophils # (Auto) 0.0 Basophils # (Auto) 0.0 CBC Comment DIFF FINAL Differential Comment Prothrombin Time 12.7 Prothromb Time International 1.1 Ratio Activated Partial 34.1 Thromboplast Time Sodium Level 130 Potassium Level 4.3 Chloride Level 94 Carbon Dioxide Level 26.4 Anion Gap 10 Blood Urea Nitrogen 22 Creatinine 1.00 Estimat Glomerular Filtration 73 Rate Random Glucose 149 Calcium Level 9.3 Total Bilirubin 0.5 Aspartate Amino Transf 25 (AST/SGOT) Alanine Aminotransferase 16 (ALT/SGPT) Alkaline Phosphatase 100 Total Protein 7.2 Albumin 2.9 Result Diagram: 02/25/17 1800 02/25/17 1800 Imaging Last 72 hours Impressions Thoracic Spine X-Ray 02/25/17 1721 Signed Impressions: Service Date/Time: Saturday, February 25, 2017 17:41 - CONCLUSION: Negative for fracture. MRI would be more sensitive for acute compression. Kenneth Hale MD FACR Pelvis X-Ray 02/25/17 1721 Signed Impressions: Service Date/Time: Saturday, February 25, 2017 17:40 - CONCLUSION: Negative for fracture or dislocation. Follow up in 7-10 days is suggested if symptoms persist. Kenneth Hlae MD FACR Lumbar Spine X-Ray 02/25/17 1721 Signed Impressions: Service Date/Time: Saturday, February 25, 2017 17:41 - CONCLUSION: Degenerative changes without acute compression. Kenneth Hale MD FACR Lumbar Spine MRI 02/25/17 0000 Signed Impressions: Service Date/Time: Saturday, February 25, 2017 19:51 - CONCLUSION: Postsurgical changes evident. With enhancement as described above laboratory process cannot be entirely excluded. If there is strong clinical concern for such fluid easily aspirated under CT or ultrasound. There is no evidence for an acute compression fracture. Kenneth Hale MD FACR Assessment and Plan Problem List: (1) Back pain Status: Acute Plan: Possibly some irritation from recent fall and recent surgery. I will give the patient antibiotics initially and have Dr. Dyer see the patient tomorrow given recent surgery and possible small fluid collection around surgical site. This could be simply a seroma as patient is not febrile and white count is not significantly elevated. (2) S/P lumbar laminectomy Status: Acute Plan: As noted above. We'll have Dr. Dyer see the patient. (3) Inability to perform activities of daily living Status: Acute Plan: We'll have case management evaluated the patient for possible short-term placement. (4) COPD (chronic obstructive pulmonary disease) Status: Chronic Plan: Provide nebulizer treatment. Encouraged patient to stop smoking. (5) Diabetic nephropathy Status: Chronic Plan: Sliding scale insulin coverage. (6) Hypertension Status: Chronic Plan: Continue medication. Clonidine when necessary. Code Status . Full Discussed Condition With Patient and ER physician. Physician Certification 2 Midnight Certification Type: Admission for Inpatient Services Order for Inpatient Services The services are ordered in accordance with Medicare regulations or non- Medicare payer requirements, as applicable. In the case of services not specified as inpatient-only, they are appropriately provided as inpatient services in accordance with the 2-midnight benchmark. Estimated LOS (days): 2 days is the estimated time the patient will need to remain in the hospital, assuming treatment plan goals are met and no additional complications. Post-Hospital Plan: Not yet determined Problem Qualifiers (1) Back pain: Qualified Code: M54.5 - Bilateral low back pain without sciatica, unspecified chronicity (2) Diabetic nephropathy: Qualified Code: E11.21 - Diabetic nephropathy associated with type 2 diabetes mellitus Ronald Gray MD PhD Feb 25, 2017 21:48
[2017-02-25] MEDS ORDERED: RESP: ALBUTEROL 2.5 MG/IPRATROPIUM 0.5 MG NEB (PRN) NEB (22:00)
[2017-02-25] MEDS: cloNIDine HCL 0.1 MG TAB PO PRN (22:08)
[2017-02-25] MEDS: ACETAMINOPHEN/HYDROcodone 325 MG/7.5 MG TAB PO PRN (22:08)
[2017-02-26] VITALS: BP 202/100; PULSE 62; RESP 18; TEMP 98.7; O2SAT 93
[2017-02-26] MEDS: TERAZOSIN HCL 5 MG CAP PO SCH ×2 (01:01→21:43)
[2017-02-26] MEDS: SODIUM CHLOR 0.9% 1000 ML INJ 1,000 ML IV SCH ×2 (01:10→10:30)
[2017-02-26] MEDS: SODIUM CHLORIDE 0.9% FLUSH 10 ML FLUSH IV FLUSH PRN (01:11)
[2017-02-26 04:00] VITALS: BP 173/90; PULSE 94; RESP 20; TEMP 98.9; O2SAT 95
[2017-02-26] MEDS: INSULIN ASPART SUPPLEMENTAL SCALE SQ SCH ×4 (07:00→21:00)
[2017-02-26] MEDS: cloNIDine HCL 0.1 MG TAB PO PRN (07:40)
[2017-02-26 08:00] VITALS: BP 161/81; PULSE 56; RESP 18; TEMP 95.9; O2SAT 95
[2017-02-26] MEDS: GLIMEPIRIDE 1 MG TAB PO SCH (09:00)
[2017-02-26] MEDS: REMOVE OLD PATCH T-DERMAL SCH (09:00)
[2017-02-26] MEDS: NICOTINE 14 MG/24 HR PATCH T-DERMAL SCH (09:00)
[2017-02-26] MEDS: CARVEDILOL 12.5 MG TAB PO SCH (10:28)
[2017-02-26] MEDS: LISINOPRIL 20 MG TAB PO SCH ×2 (10:28→21:44)
[2017-02-26] MEDS: MULTIVITAMIN TAB PO SCH (10:28)
[2017-02-26 12:17] LABS: BASOPHIL % 0.3 % (0.0-2.0); EOSINOPHIL % 0.1 % (0.0-4.0); HEMATOCRIT 36.8 % (39.0-51.0); HEMO FLAGS DIFF FINAL; LYMPH % 10.2 % (9.0-44.0); MEAN CELL VOLUME 95.1 FL (80.0-100.0); MEAN CORPUSCULAR HEMOGLOBIN 32.3 PG (27.0-34.0); MEAN CORPUSCULAR HGB CONC 33.9 % (32.0-36.0); NEUT % 79.4 % (16.0-70.0); PLATELET COUNT 398 TH/MM3 (150-450); RED BLOOD COUNT 3.87 MIL/MM3 (4.50-5.90); RED CELL DISTRIBUTION WIDTH 14.9 % (11.6-17.2)
[2017-02-26 12:28] VITALS: BP 226/98; PULSE 52; RESP 18; TEMP 95.5; O2SAT 94
[2017-02-26] MEDS ORDERED: cloNIDine HCL 0.2 MG TAB PO PRN (13:15)
[2017-02-26] MEDS ORDERED: cloNIDine HCL 0.1 MG TAB PO PRN (13:30)
[2017-02-26 14:20] LABS: ANION GAP 8 MEQ/L (5-15); BICARBONATE 29.8 MEQ/L (21.0-32.0); BLOOD UREA NITROGEN 15 MG/DL (7-18); CHLORIDE 95 MEQ/L (98-107); GLOMERULAR FILTRATION RATE 93 ML/MIN (>89); POTASSIUM 3.8 MEQ/L (3.5-5.1); SODIUM (NA) 133 MEQ/L (136-145)
[2017-02-26 14:21] LABS: ALT (GPT) 13 U/L (12-78); AST (GOT) 21 U/L (15-37)
[2017-02-26 14:24] LABS: ALKALINE PHOSPHATASE 71 U/L (45-117); TOTAL BILIRUBIN ADULT 0.4 MG/DL (0.2-1.0)
--- NOTE | 2017-02-26 15:58 | HHI.NSPN ---
(Pratima Villareal) Note Status Status: Progress Note (Pratima Villareal) Interval History Interval History Mr. Landers is a 72 year old male who underwent a L3-L4, L4-L5 left decompressive laminectomy, mesial facetectomy, foraminotomy with microsurgical resection of the disc on Feb 10, 2017. His brother was in room and reports patient has been taking oxycodone for pain, however was not answering his phone overnight and the next days so his brother came to his house and found patient the patient confused and his house covered in feces. He is also a hoarder according to the brother. The patient is c/o of severe lumbar pain. (Pratima Villareal) Labs, Micro, & Vital Signs Results Date Time Temp Pulse Resp B/P Pulse Ox O2 Delivery O2 Flow Rate FiO2 02/26/17 12:28 95.5 52 18 226/98 94 02/26/17 08:00 95.9 56 18 161/81 95 02/26/17 04:00 98.9 94 20 173/90 95 02/26/17 00:00 98.7 62 18 202/100 93 02/25/17 19:32 70 16 193/93 96 Room Air 02/25/17 18:33 75 20 215/101 96 02/25/17 17:16 98 Room Air 02/25/17 16:51 98 18 195/90 98 Room Air 02/26/17 07:00 Output Total 350 ml Balance -350 ml Constitutional Vital Signs Date Time Temp Pulse Resp B/P Pulse Ox O2 Delivery O2 Flow Rate FiO2 02/26/17 12:28 95.5 52 18 226/98 94 02/26/17 08:00 95.9 56 18 161/81 95 02/26/17 04:00 98.9 94 20 173/90 95 02/26/17 00:00 98.7 62 18 202/100 93 02/25/17 19:32 70 16 193/93 96 Room Air 02/25/17 18:33 75 20 215/101 96 02/25/17 17:16 98 Room Air 02/25/17 16:51 98 18 195/90 98 Room Air 02/26/17 07:00 Output Total 350 ml Balance -350 ml (Pratima Villareal) Review of Systems/Exam Exam Mr. Landers is drowsy, intermittently falls back asleep, confused, oriented to self. Not following much commands. He appears malnourished. Cranial nerve examination demonstrates the pupils to be equal, round, and reactive to light. Facial appears symmetric at rest. Neck is soft and supple. Motor: moving all four extremities Deep tendon reflexes: In the lower extremities, the patellar and Achilles are 1+ , bilaterally. There is a bilateral plantar flexion response. No ankle clonus. Cerebellar examination is limited due to the patient condition. (Pratima Villareal) Medications Current Medications Current Medications Medications (Trade) Dose Ordered Sig/Jinny Route PRN Reason Start Time Stop Time Status Last Admin Dose Admin Sodium Chloride (NS Flush) 2 ml UNSCH PRN IV FLUSH FLUSH AFTER USING IV ACCESS 02/25/17 17:30 02/26/17 01:11 Nicotine (Habitrol 14 Mg Patch.24 Hr) 1 patch DAILY T-DERMAL 02/26/17 09:00 Miscellaneous Information 1 DAILY T-DERMAL 02/26/17 09:00 Acetaminophen/ Hydrocodone Bitart (Argyle 7.5-325 Mg) 1 tab Q6H PRN PO pain level 3-10 02/25/17 22:00 02/25/17 22:08 Carvedilol (Coreg) 12.5 mg DAILY PO 02/26/17 09:00 02/26/17 10:28 Glimepiride (Amaryl) 1 mg DAILY PO 02/26/17 09:00 Lisinopril (Prinivil) 20 mg BID PO 02/26/17 09:00 02/26/17 10:28 Terazosin HCl (Hytrin) 5 mg HS PO 02/25/17 22:00 02/26/17 01:01 Multivitamins (Theragran) 1 tab DAILY PO 02/26/17 09:00 02/26/17 10:28 Diazepam (Valium) 2 mg HS PO 02/26/17 21:00 Clonidine (Catapres) 0.2 mg Q4H PRN PO sbp > 170 02/26/17 13:15 Enalaprilat (Vasotec Inj) 1.25 mg Q4H PRN IV PUSH sbp > 180 02/26/17 13:15 (Pratima Villareal) Medical Decision Making MDM Remarks 72 y/o male recent L3-L4, L4-L5 left decompressive laminectomy, mesial facetectomy, foraminotomy with microsurgical resection of the disc on Feb 10, 2017, presents with AMS Brother concerned regarding patient's home environment (Pratima Villareal) Plan Plan Remarks MRI L spine reviewed by Dr. Dyer, recommends nonsurgical management, cont medical management Physical Therapy dietary consultation dw Brother in detail, he would like patient to go to inpatient rehab upon d/c ( Pratima Villareal) Attending Statement The exam, history, and the medical decision-making described in the above note were completed with the assistance of the mid-level provider. I reviewed and agree with the findings presented. I attest that I had a [id number] encounter with the patient on the same day, and personally performed and documented my assessment and findings in the medical record. (Michael Dyer MD) Pratima Villareal Feb 26, 2017 15:58 Michael Dyer MD Mar 02, 2017 12:42
[2017-02-26] MEDS: ENALAPRILAT 1.25 MG/ML VIAL IV PUSH PRN ×2 (16:13→21:43)
[2017-02-26 16:30] VITALS: BP 208/80; PULSE 47; RESP 18; TEMP 96.5; O2SAT 94
--- NOTE | 2017-02-26 17:56 | HHI.PR ---
Subjective Remarks sleepy but arousable and follows commands Objective Vitals heart reg lung cta abd s/nt ext no edema small lumbar midline opening no surrounding erythema or pus Vital Signs Date Time Temp Pulse Resp B/P Pulse Ox O2 Delivery O2 Flow Rate FiO2 02/26/17 16:30 96.5 47 18 208/80 94 02/26/17 12:28 95.5 52 18 226/98 94 02/26/17 08:00 95.9 56 18 161/81 95 02/26/17 04:00 98.9 94 20 173/90 95 02/26/17 00:00 98.7 62 18 202/100 93 02/25/17 19:32 70 16 193/93 96 Room Air 02/25/17 18:33 75 20 215/101 96 02/25/17 02/25/17 02/26/17 15:00 23:00 07:00 Output Total 350 ml Balance -350 ml Output Urine Total 350 ml # Voids 1 Result Diagram: 02/26/17 1139 02/26/17 1139 Imaging Last 72 hours Impressions Thoracic Spine X-Ray 02/25/17 1721 Signed Impressions: Service Date/Time: Saturday, February 25, 2017 17:41 - CONCLUSION: Negative for fracture. MRI would be more sensitive for acute compression. Kenneth Hale MD FACR Pelvis X-Ray 02/25/171720 Signed Impressions: Service Date/Time: Saturday, February 25, 2017 17:40 - CONCLUSION: Negative for fracture or dislocation. Follow up in 7-10 days is suggested if symptoms persist. Kenneth Hale MD FACR Lumbar Spine X-Ray 02/25/17 172 Signed Impressions: Service Date/Time: Saturday, February 25, 2017 17:41 - CONCLUSION: Degenerative changes without acute compression. Kenneth Hale MD FACR Lumbar Spine MRI 02/25/17 0000 Signed Impressions: Service Date/Time: Saturday, February 25, 2017 19:51 - CONCLUSION: Postsurgical changes evident. With enhancement as described above laboratory process cannot be entirely excluded. If there is strong clinical concern for such fluid easily aspirated under CT or ultrasound. There is no evidence for an acute compression fracture. Kenneth Hale MD FACR A/P Problem List: (1) Back pain Status: Acute Plan: Pt s/p recent Lami of L3-4,4-5. He irritated the low back with twisting motion and here with excrutiating pain Noted to be severely htn on exam today He was said to be confused/covered in feces at home. He is currently lethargic but arousable and follows commands. d/c ivf cont bp meds increase prn meds seen by NSG who ordered ct lumbar spine. ct brain. scd PT (2) S/P lumbar laminectomy Status: Acute Plan: As noted above. We'll have Dr. Dyer see the patient. (3) COPD (chronic obstructive pulmonary disease) Status: Chronic Plan: Provide nebulizer treatment. Encouraged patient to stop smoking. (4) Diabetic nephropathy Status: Chronic Plan: Sliding scale insulin coverage. (5) Hypertension Status: Chronic Plan: Continue medication. Clonidine when necessary. (6) DM (diabetes mellitus) Status: Chronic Plan: oha. ssi. Problem Qualifiers (1) Back pain: Qualified Code: M54.5 - Bilateral low back pain without sciatica, unspecified chronicity (2) Diabetic nephropathy: Qualified Code: E11.21 - Diabetic nephropathy associated with type 2 diabetes mellitus Jimy Elaine MD Feb 26, 2017 17:56
--- NOTE | 2017-02-26 19:07 | RADRPT ---
EXAM DATE/TIME: 02/26/2017 18:40 [facility] COMPARISON: CT BRAIN W/O CONTRAST, May 03, 2013, 11:09. INDICATIONS : Altered mental status. RADIATION DOSE: 50.01 CTDIvol (mGy) MEDICAL HISTORY : Hypertension. Hernia, hiatal. Diabetes mellitus type 2. SURGICAL HISTORY : None. ENCOUNTER: Initial ACUITY: 1 day PAIN SCALE: 0/10 LOCATION: Bilateral cranial TECHNIQUE: Multiple contiguous axial images were obtained of the head. Using automated exposure control and adj ustment of the mA and/or kV according to patient size, radiation dose was kept as low as reasonably a chievable to obtain optimal diagnostic quality images. DICOM format image data is available electro nically for review and comparison. FINDINGS: There is no evidence for intracranial hemorrhage, mass effect, mass lesions, or edema. The visualize d bony structures appear intact. Slight degree of brain atrophy is seen. Slight periventricular whit e matter changes are seen nonspecific mostly consistent with chronic small vessel ischemic changes. There are no signs of acute infarction for technique. CONCLUSION: Slight atrophic and small vessel ischemic changes without any evidence for acute hemorrhage or mass effect. Selam Estrada MD on February 26, 2017 at 19:03 Board Certified Radiologist. This report was verified electronically.
[2017-02-26 20:51] VITALS: BP 200/99; PULSE 55; RESP 18; TEMP 97.3; O2SAT 94
[2017-02-26] MEDS ORDERED: DIAZEPAM 5 MG TAB PO SCH (21:00)
[2017-02-26] MEDS: DIAZEPAM 2 MG TAB PO SCH (21:00)
[2017-02-26] MEDS: ACETAMINOPHEN/HYDROcodone 325 MG/7.5 MG TAB PO PRN (21:43)
[2017-02-27 00:23] VITALS: BP 147/81; PULSE 61; RESP 18; TEMP 97.2; O2SAT 94
[2017-02-27 04:00] VITALS: BP 188/98; PULSE 63; RESP 18; TEMP 97.6; O2SAT 94
[2017-02-27] MEDS: INSULIN ASPART SUPPLEMENTAL SCALE SQ SCH ×4 (06:03→20:03)
[2017-02-27] MEDS: NICOTINE 14 MG/24 HR PATCH T-DERMAL SCH (08:18)
[2017-02-27] MEDS: REMOVE OLD PATCH T-DERMAL SCH (08:19)
[2017-02-27] MEDS: GLIMEPIRIDE 1 MG TAB PO SCH (08:19)
[2017-02-27] MEDS: LISINOPRIL 20 MG TAB PO SCH ×2 (08:19→20:03)
[2017-02-27] MEDS: MULTIVITAMIN TAB PO SCH (08:19)
[2017-02-27] MEDS: CARVEDILOL 12.5 MG TAB PO SCH (08:19)
[2017-02-27] MEDS: ACETAMINOPHEN/HYDROcodone 325 MG/7.5 MG TAB PO PRN ×2 (08:30→15:04)
[2017-02-27 08:48] VITALS: BP 177/79; PULSE 48; RESP 18; TEMP 97.2; O2SAT 93
[2017-02-27 12:12] VITALS: BP 89/54; PULSE 61; RESP 18; TEMP 96.3; O2SAT 97
--- NOTE | 2017-02-27 12:38 | HHI.PR ---
Subjective Remarks pt in chair more alert. Objective Vitals looks weak in chair heart reg ava gcta abd sn/t ext no edema Vital Signs Date Time Temp Pulse Resp B/P Pulse Ox O2 Delivery O2 Flow Rate FiO2 02/27/17 12:12 96.3 61 18 89/54 97 02/27/17 08:48 97.2 48 18 177/79 93 02/27/17 04:00 97.6 63 18 188/98 94 02/27/17 00:23 97.2 61 18 147/81 94 02/26/17 20:51 97.3 55 18 200/99 94 02/26/17 16:30 96.5 47 18 208/80 94 02/26/17 02/26/17 02/27/17 14:59 22:59 06:59 Intake Total 594 ml 240 ml 120 ml Output Total 550 ml 250 ml 650 ml Balance 44 ml -10 ml -530 ml Intake Oral 0 ml 240 ml 120 ml IV Total 594 ml Output Urine Total 550 ml 250 ml 650 ml # Voids 2 1 # Bowel Movements 1 1 Result Diagram: 02/26/17 1139 02/26/17 1139 Imaging Last 72 hours Impressions Thoracic Spine X-Ray 02/25/171720 Signed Impressions: Service Date/Time: Saturday, February 25, 2017 17:41 - CONCLUSION: Negative for fracture. MRI would be more sensitive for acute compression. Kenneth Hale MD FACR Pelvis X-Ray 02/25/171720 Signed Impressions: Service Date/Time: Saturday, February 25, 2017 17:40 - CONCLUSION: Negative for fracture or dislocation. Follow up in 7-10 days is suggested if symptoms persist. Kenneth Hale MD FACR Lumbar Spine X-Ray 02/25/171720 Signed Impressions: Service Date/Time: Saturday, February 25, 2017 17:41 - CONCLUSION: Degenerative changes without acute compression. Kenneth Hale MD FACR Lumbar Spine MRI 02/25/17 0000 Signed Impressions: Service Date/Time: Saturday, February 25, 2017 19:51 - CONCLUSION: Postsurgical changes evident. With enhancement as described above laboratory process cannot be entirely excluded. If there is strong clinical concern for such fluid easily aspirated under CT or ultrasound. There is no evidence for an acute compression fracture. Kenneth Hale MD FACR A/P Problem List: (1) Back pain Status: Acute Plan: Pt s/p recent Lami of L3-4,4-5. He irritated the low back with twisting motion and here with excrutiating pain Noted to be severely htn He was said to be confused/covered in feces at home. He is currently lethargic but arousable and follows commands. pt insisting on d/c home insteady of snf monitor bp control and adjust meds as needed today seen by NSG ct brain negative for acute cva scd PT (2) S/P lumbar laminectomy Status: Acute Plan: As noted above. We'll have Dr. Dyer see the patient. (3) COPD (chronic obstructive pulmonary disease) Status: Chronic Plan: Provide nebulizer treatment. Encouraged patient to stop smoking. (4) Diabetic nephropathy Status: Chronic Plan: Sliding scale insulin coverage. (5) Hypertension Status: Chronic Plan: Continue medication. Clonidine when necessary. (6) DM (diabetes mellitus) Status: Chronic Plan: oha. ssi. Problem Qualifiers (1) Back pain: Qualified Code: M54.5 - Bilateral low back pain without sciatica, unspecified chronicity (2) Diabetic nephropathy: Qualified Code: E11.21 - Diabetic nephropathy associated with type 2 diabetes mellitus Jimy Elaine MD Feb 27, 2017 12:37
[2017-02-27] MEDS ORDERED: HYDROCHLOROTHIAZIDE 25 MG TAB PO ONE (14:15)
[2017-02-27 16:34] VITALS: BP 144/77; PULSE 57; RESP 18; TEMP 95.9; O2SAT 96
--- NOTE | 2017-02-27 17:23 | HHI.NSPN ---
(Pratima Villareal) Note Status Status: Progress Note (Pratima Villareal) Interval History Interval History Mr. Landers is a 72 year old male who underwent a L3-L4, L4-L5 left decompressive laminectomy, mesial facetectomy, foraminotomy with microsurgical resection of the disc on Feb 10, 2017. His brother was in room and reports patient has been taking oxycodone for pain, however was not answering his phone overnight and the next days so his brother came to his house and found patient the patient confused and his house covered in feces. He is also a hoarder according to the brother. The patient is c/o of severe lumbar pain. 02/27: mental status better, c/o lumbar pain and left buttocks pain. (Pratima Villareal) Labs, Micro, & Vital Signs Results Date Time Temp Pulse Resp B/P Pulse Ox O2 Delivery O2 Flow Rate FiO2 02/27/17 16:34 95.9 57 18 144/77 96 02/27/17 12:12 96.3 61 18 89/54 97 02/27/17 08:48 97.2 48 18 177/79 93 02/27/17 04:00 97.6 63 18 188/98 94 02/27/17 00:23 97.2 61 18 147/81 94 02/26/17 20:51 97.3 55 18 200/99 94 02/27/17 06:59 Intake Total 954 ml Output Total 1450 ml Balance -496 ml Constitutional Vital Signs Date Time Temp Pulse Resp B/P Pulse Ox O2 Delivery O2 Flow Rate FiO2 02/27/17 16:34 95.9 57 18 144/77 96 02/27/17 12:12 96.3 61 18 89/54 97 02/27/17 08:48 97.2 48 18 177/79 93 02/27/17 04:00 97.6 63 18 188/98 94 02/27/17 00:23 97.2 61 18 147/81 94 02/26/17 20:51 97.3 55 18 200/99 94 02/27/17 06:59 Intake Total 954 ml Output Total 1450 ml Balance -496 ml (Pratima Villareal) Review of Systems/Exam Exam Mr. Landers is awake, sitting up in chair. Oriented to self and place. Feeding himself breakfast. Follows commands. Surgical wound appears to be healing well, no gross signs of infection. Cranial nerve examination: pupils to be equal, round, and reactive to light. EOMs are intact with normal convergence. Facial motor function appears normal and symmetrical. Neck is soft and supple. Muscle strength is 5/5 in all muscle groups of both upper and lower extremities. (Pratima Villareal) Medications Current Medications Current Medications Medications (Trade) Dose Ordered Sig/Jinny Route PRN Reason Start Time Stop Time Status Last Admin Dose Admin Sodium Chloride (NS Flush) 2 ml UNSCH PRN IV FLUSH FLUSH AFTER USING IV ACCESS 02/25/17 17:30 02/26/17 01:11 Nicotine (Habitrol 14 Mg Patch.24 Hr) 1 patch DAILY T-DERMAL 02/26/17 09:00 02/27/17 08:18 Miscellaneous Information 1 DAILY T-DERMAL 02/26/17 09:00 Acetaminophen/ Hydrocodone Bitart ([place] 7.5-325 Mg) 1 tab Q6H PRN PO pain level 3-10 02/25/17 22:00 02/27/17 15:04 Carvedilol (Coreg) 12.5 mg DAILY PO 02/26/17 09:00 02/27/17 08:19 Glimepiride (Amaryl) 1 mg DAILY PO 02/26/17 09:00 02/27/17 08:19 Lisinopril (Prinivil) 20 mg BID PO 02/26/17 09:00 02/27/17 08:19 Terazosin HCl (Hytrin) 5 mg HS PO 02/25/17 22:00 02/26/17 21:43 Multivitamins (Theragran) 1 tab DAILY PO 02/26/17 09:00 02/27/17 08:19 Diazepam (Valium) 2 mg HS PO 02/26/17 21:00 Clonidine (Catapres) 0.2 mg Q4H PRN PO sbp > 170 02/26/17 13:15 02/27/17 05:36 Enalaprilat (Vasotec Inj) 1.25 mg Q4H PRN IV PUSH sbp > 180 02/26/17 13:15 02/26/17 21:43 Hydrochlorothiazide (Hydrodiuril) 25 mg DAILY PO 02/28/17 09:00 (Pratima Villareal) Medical Decision Making MDM Remarks 72 y/o male recent L3-L4, L4-L5 left decompressive laminectomy, mesial facetectomy, foraminotomy with microsurgical resection of the disc on Feb 10, 2017, presented for AMS, mental status improved (Pratima Villareal) Plan Plan Remarks MRI Lumbar spine reviewed by Dr. Dyer, recommends continue nonsurgical management, cont physical therapy recommend dc to inpatient rehab (Pratima Villareal) Attending Statement Continue neuro checks in a serial fashion. Pulmonary. Continue aggressive pulmonary toilette, nasotracheal suction, and breathing treatments with nebulizers. PT and OT evaluation Nutrition. NPO after midnoght Renal. Continue monitor closely urine output, BUN and creatinine Endocrine. Continue Monitor serial Acu checks and SSI as needed in detail ID Continue monitor for signs of infection Continue Protonix for stress ulcer prophylaxis Continue Carlyle hose and SCD's for DVT prophylaxis The exam, history, and the medical decision-making described in the above note were completed with the assistance of the mid-level provider. I reviewed and agree with the findings presented. I attest that I had a [id number] encounter with the patient on the same day, and personally performed and documented my assessment and findings in the medical record. (Michael Dyer MD) Pratima Villareal Feb 27, 2017 17:23 Michael Dyer MD Mar 02, 2017 12:42
[2017-02-27 18:00] LABS: BICARBONATE 31.7 MEQ/L (21.0-32.0); POTASSIUM 3.7 MEQ/L (3.5-5.1)
[2017-02-27] MEDS: TERAZOSIN HCL 5 MG CAP PO SCH (20:03)
[2017-02-27] MEDS: SODIUM CHLORIDE 0.9% FLUSH 10 ML FLUSH IV FLUSH PRN (20:03)
[2017-02-27] MEDS: DIAZEPAM 2 MG TAB PO SCH (20:03)
[2017-02-28 04:00] VITALS: BP 145/80; PULSE 63; RESP 18; TEMP 97; O2SAT 97
[2017-02-28] MEDS: ACETAMINOPHEN/HYDROcodone 325 MG/7.5 MG TAB PO PRN ×3 (05:39→16:31)
[2017-02-28] MEDS: INSULIN ASPART SUPPLEMENTAL SCALE SQ SCH ×2 (05:42→11:00)
[2017-02-28 08:11] VITALS: BP 172/95; PULSE 59; RESP 19; TEMP 95.4; O2SAT 98
[2017-02-28] MEDS: CARVEDILOL 12.5 MG TAB PO SCH (08:31)
[2017-02-28] MEDS: LISINOPRIL 20 MG TAB PO SCH (08:32)
[2017-02-28] MEDS: MULTIVITAMIN TAB PO SCH (08:32)
[2017-02-28] MEDS: NICOTINE 14 MG/24 HR PATCH T-DERMAL SCH (08:32)
[2017-02-28] MEDS: GLIMEPIRIDE 1 MG TAB PO SCH (08:32)
[2017-02-28] MEDS: REMOVE OLD PATCH T-DERMAL SCH (09:00)
[2017-02-28] MEDS ORDERED: HYDROCHLOROTHIAZIDE 25 MG TAB PO SCH (09:00)
[2017-02-28 09:23] LABS: POTASSIUM 3.5 MEQ/L (3.5-5.1)
[2017-02-28 12:10] VITALS: BP 155/80; PULSE 59; RESP 17; TEMP 98.1; O2SAT 98
--- NOTE | 2017-02-28 12:43 | HHI.PR ---
Subjective Remarks pt is very manipulative when I try to work out a plan for snf placement Objective Vitals awakens nad heart reg lung cta abd s/nt ext no edema Vital Signs Date Time Temp Pulse Resp B/P Pulse Ox O2 Delivery O2 Flow Rate FiO2 02/28/17 12:10 98.1 59 17 155/80 98 02/28/17 08:11 95.4 59 19 172/95 98 02/28/17 04:00 97.0 63 18 145/80 97 02/27/17 16:34 95.9 57 18 144/77 96 02/27/17 02/27/17 02/28/17 15:00 23:00 07:00 Intake Total 360 ml Output Total 100 ml Balance 260 ml Intake Oral 360 ml Output Urine Total 100 ml # Voids 1 1 # Bowel Movements 2 Result Diagram: 02/26/17 1139 02/28/17 0803 Imaging Last 72 hours Impressions Thoracic Spine X-Ray 02/25/17 1721 Signed Impressions: Service Date/Time: Saturday, February 25, 2017 17:41 - CONCLUSION: Negative for fracture. MRI would be more sensitive for acute compression. Kenneth Hale MD FACR Pelvis X-Ray 02/25/17 1721 Signed Impressions: Service Date/Time: Saturday, February 25, 2017 17:40 - CONCLUSION: Negative for fracture or dislocation. Follow up in 7-10 days is suggested if symptoms persist. Kenneth Hale MD FACR Lumbar Spine X-Ray 02/25/17 1721 Signed Impressions: Service Date/Time: Saturday, February 25, 2017 17:41 - CONCLUSION: Degenerative changes without acute compression. Kenneth Hale MD FACR Lumbar Spine MRI 02/25/17 0000 Signed Impressions: Service Date/Time: Saturday, February 25, 2017 19:51 - CONCLUSION: Postsurgical changes evident. With enhancement as described above laboratory process cannot be entirely excluded. If there is strong clinical concern for such fluid easily aspirated under CT or ultrasound. There is no evidence for an acute compression fracture. Kenneth Hale MD FACR A/P Problem List: (1) Back pain Status: Acute Plan: Pt s/p recent L[place] of L3-4,4-5. He irritated the low back with twisting motion and here with excrutiating pain Noted to be severely htn He was said to be confused/covered in feces at home. He is currently oriented but very weak. pt insisting on d/c home instead of snf he was agreeable yesterday to snf today...but is extremely manipulative about this discussion today....I have requested that nurse and cm assist in finding a snf for him...d/c orders. pt says he does'nt use vallium at home. (2) S/P lumbar laminectomy Status: Acute Plan: above (3) COPD (chronic obstructive pulmonary disease) Status: Chronic Plan: Provide nebulizer treatment. Encouraged patient to stop smoking. (4) Diabetic nephropathy Status: Chronic Plan: Sliding scale insulin coverage. (5) Hypertension Status: Chronic Plan: Continue medication. Clonidine when necessary. (6) DM (diabetes mellitus) Status: Chronic Plan: oha. ssi. 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
[2017-02-28] MEDS ORDERED: HYDR-3583 PO ×2 (12:48→12:56)
--- NOTE | 2017-02-28 12:49 | HHI.DCPOC ---
Discharge Care Plan Diagnosis: (1) Back pain (2) S/P lumbar laminectomy (3) Inability to perform activities of daily living (4) DM (diabetes mellitus) (5) Hypertension (6) COPD (chronic obstructive pulmonary disease) Goals to Promote Your Health * To prevent worsening of your condition and complications * To maintain your health at the optimal level Directions to Meet Your Goals Take your medications as prescribed Follow your dietary instruction Follow activity as directed Keep your appointments as scheduled Take your immunizations and boosters as scheduled If your symptoms worsen call your PCP, if no PCP go to Urgent Care Center or Emergency Room Smoking is Dangerous to Your Health. Avoid second hand smoke Call the 24-hour hour crisis hotline for domestic abuse at Jimy Elaine MD Feb 28, 2017 12:49
[2017-02-28 16:34] VITALS: BP 145/77; PULSE 97; RESP 18; TEMP 96.9; O2SAT 95
== END 2017-02-28 18:24 | DRG 552 ==
LOC: NEPD 13:40 → NEDA 20:52 → N05B 22:51
PROVIDERS: ADMIT Hospitalist; ATTEND Hospitalist
DX: M54.5 Low back pain (principal); E11.21 Type 2 diabetes mellitus with diabetic nephropathy; I50.30 Unspecified diastolic (congestive) heart failure; I11.0 Hypertensive heart disease with heart failure; E87.1 Hypo-osmolality and hyponatremia; E11.40 Type 2 diabetes mellitus with diabetic neuropathy, unspecified; E86.0 Dehydration; E11.22 Type 2 diabetes mellitus with diabetic chronic kidney disease; E78.5 Hyperlipidemia, unspecified; J44.9 Chronic obstructive pulmonary disease, unspecified; Z98.890 Other specified postprocedural states; Z87.891 Personal history of nicotine dependence; Z79.84 Long term (current) use of oral hypoglycemic drugs; Z86.73 Personal history of transient ischemic attack (TIA), and cerebral infarction without residual deficits; W01.0XXA Fall on same level from slipping, tripping and stumbling without subsequent striking against object, initial encounter; Y92.002 Bathroom of unspecified non-institutional (private) residence as the place of occurrence of the external cause
CPT/HCPCS: 70450; 72072; 72110; 72158; 72170; 80048; 80053; 82948; 85025; 85610; 85730; A9579; J1815; J3370; J7030; J7050